=== PATIENT | female | born 1945 | race Native Hawaiian/Other Pacific Islander ===

== ENCOUNTER 2017-10-07 19:20 | Inpatient (IN) | payer MEDICARE, OTHER, MEDICAID ==
[~2017-10-07] VITALS: Ht 152.4 cm; Wt 42.6 kg
[~2017-10-07 19:20] MED LIST: ALBU8.5H8 IH; AMLO5TAB2 PO; DOXY100C2 PO; FLUT1DIS28 IH; LISI10TA PO; TIOT18CA3 IH
[2017-10-07] MEDS ORDERED: DIVA250T6 PO (19:33)
[2017-10-07] MEDS ORDERED: TRAZ-144 PO (19:33)
[2017-10-07 20:15] VITALS: BP 117/67
[2017-10-07 20:19] LABS: ETHANOL < 3 MG/DL (0-0)
[2017-10-07 20:24] LABS: ALANINE AMINOTRANSFERASE 18 U/L (14-59); ALKALINE PHOSPHATASE 94 U/L (50-136); ASPARTATE AMINOTRANSFERASE 19 U/L (15-37); BILIRUBIN,DIRECT 0.1 mg/dL (0.0-0.2); BILIRUBIN,TOTAL 0.2 mg/dL (0.2-1.0); CARBON DIOXIDE 29 mmol/L (21-32); CHLORIDE 106 mmol/L (98-107); CREATININE 0.8 mg/dL (0.6-1.3); GLUCOSE 67 mg/dL (74-106); POTASSIUM 3.8 mmol/L (3.5-5.1); TOTAL PROTEIN, SERUM 6.9 g/dL (6.4-8.2); UREA NITROGEN, BLOOD 14 mg/dL (7-18)
[2017-10-07 20:29] LABS: ACETAMINOPHEN < 2.0 ug/mL (10-30)
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
[2017-10-07 20:31] LABS: THYROID STIMULATING HORMONE 0.884 mIU/mL (0.358-3.740)
[2017-10-07 20:33] LABS: BASOPHILS # (AUTO) 0.1 K/uL (0.0-8.0); EOSINOPHILS # (AUTO) 0.1 K/uL (0.0-0.7); HEMATOCRIT 40.5 % (31.2-41.9); HEMOGLOBIN 13.5 g/dL (10.9-14.3); LYMPHOCYTES # (AUTO) 1.6 K/uL (20.0-40.0); LYMPHOCYTES % (AUTO) 31.9 % (20.5-51.5); MEAN CORPUSCULAR HGB CONC 33 g/dL (32.3-35.6); MONOCYTES # (AUTO) 0.5 K/uL (2.0-10.0); MONOCYTES % (AUTO) 10.3 % (0.0-11.0); NEUTROPHILS # (AUTO) 2.7 K/uL (1.8-8.9); NEUTROPHILS % (AUTO) 53.8 % (38.5-71.5); PLATELET COUNT (AUTO) 169 K/uL (179-408); RED BLOOD CELL COUNT(AUTO) 4.22 MIL/uL (3.63-4.92)
[2017-10-07 20:39] LABS: *AMPHETAMINE, URINE NEGATIVE (NEGATIVE); *BARBITURATE, URINE NEGATIVE (NEGATIVE); *CANNABINOID, URINE NEGATIVE (NEGATIVE); *COCCAINE, URINE NEGATIVE (NEGATIVE); *OPIATE, URINE NEGATIVE (NEGATIVE); *PHENCYCLIDINE SCREEN,URINE NEGATIVE (NEGATIVE)
--- NOTE | 2017-10-07 20:43 | NUR ---
Pt. admitted to MHU , under care of Dr. CASTLE Belongs List completed.
[2017-10-07] MEDS ORDERED: MAGNESIUM HYDROXIDE 30 ML LIQUID UDC PO PRN (21:30)
[2017-10-07] MEDS ORDERED: MAG HYDROX/AL HYDROX/SIMETH 30 ML LIQUID UDC PO PRN (21:30)
[2017-10-07] MEDS ORDERED: ZOLPIDEM 5 MG TABLET PO PRN (21:30)
[2017-10-07] MEDS: ACETAMINOPHEN 325 MG TABLET PO PRN (22:07)
--- NOTE | 2017-10-08 06:41 | NUR ---
Pt DID NOT WANT TO STAY AWAKE TO SIGN FOR INVENTORY. Pt BELONGINGS PAPER AND AND MEDICATIONS BAG THAT WILL GO TO PHARMACY TO BE ENDORSED TO DAY SHIFT NURSEJeff RN FOR Pt TO SIGN.
[2017-10-08 08:21] VITALS: BP 117/74
[2017-10-08] MEDS: VENLAFAXINE XR 37.5 MG CAP.SR.24H PO SCH (09:07)
--- NOTE | 2017-10-08 12:12 | NUR ---
Firearms Report: Mid Level Project Manager completed and submitted [employer] Firearms Report on 10/08/17.
[2017-10-08] MEDS: ACETAMINOPHEN 325 MG TABLET PO PRN (16:01)
--- NOTE | 2017-10-08 16:04 | NUR ---
pAGED X2 FOR MEDICATION RECONCILES ,STILL NO RESPONDED.
[2017-10-08 17:06] VITALS: BP 159/93
[2017-10-08 20:00] VITALS: BP 113/68
[2017-10-08] MEDS: TRAZODONE 50 MG TABLET PO SCH (20:35)
[2017-10-09 07:30] VITALS: BP 117/76
[2017-10-09] MEDS: LISINOPRIL 10 MG TABLET PO SCH (08:30)
[2017-10-09] MEDS: VENLAFAXINE XR 37.5 MG CAP.SR.24H PO SCH (08:30)
[2017-10-09] MEDS: AMLODIPINE 5 MG TABLET PO SCH (08:31)
[2017-10-09 15:59] VITALS: BP 100/71
[2017-10-09 20:00] VITALS: BP 108/68
[2017-10-09] MEDS: TRAZODONE 50 MG TABLET PO SCH (20:34)
[2017-10-09] MEDS: ACETAMINOPHEN 325 MG TABLET PO PRN (21:13)
--- NOTE | 2017-10-09 22:08 | NUR ---
PATIENT RECEIVED IN BED AWAKE READING A BOOK. PATIENT DENIES SI, WILL CONTINUE TO MONITOR PATIENT ENCOURAGED TO EXPRESS FEELINGS AND CONCERNS. PATIENT REMAINS ISOLATIVE/WITHDRAWN. PATIENT COMPLAINT WITH MEDICATION. NO AGGRESSIVE OR COMBATIVE BEHAVIOR WILL CONTINUE TO MONITOR AND REDIRECT NEEDED. BED IN LOWEST POSITION, BED LOCKED, AND BED ALARM ON WHILE IN BED.
[2017-10-10 07:30] VITALS: BP 116/68
[2017-10-10] MEDS: LISINOPRIL 10 MG TABLET PO SCH (09:51)
[2017-10-10] MEDS: VENLAFAXINE XR 37.5 MG CAP.SR.24H PO SCH (09:51)
[2017-10-10] MEDS: AMLODIPINE 5 MG TABLET PO SCH (09:51)
--- NOTE | 2017-10-10 12:20 | NUR ---
Initial Discharge Instructions: Patient currently resides at [facility] [[address] [place] [address];[phone]], however, this facility is currently being shut down. Per patient, she would like to live somewhere where she can "be more independent." MAEVE spoke with pt's APS worker, Carlee ([phone]) who states she would like to be informed of patient's discharge date and disposition. MAEVE will continue to collaborate with pt and MD regarding appropriate discharge plan. SW will form a safe and proper discharge.
[2017-10-10 15:46] VITALS: BP 112/64
[2017-10-10] MEDS: TRAZODONE 50 MG TABLET PO SCH (20:26)
[2017-10-10 20:29] VITALS: BP 131/81
--- NOTE | 2017-10-11 06:40 | NUR ---
PT'S ABLE TO SLEEP FOR 7.30 HOURS AT NIGHT,COMPLY W/MEDICATION.PAIN'S CONTROLLED.NO DISTRESS NOTED IN THE SHIFT.SAFETY RENDER.
[2017-10-11 07:30] VITALS: BP 122/78
--- NOTE | 2017-10-11 07:53 | NUR ---
PATIENT RECEIVED IN BED sleeping. PATIENT DENIES SI, WILL CONTINUE TO MONITOR PATIENT ENCOURAGED TO EXPRESS FEELINGS AND CONCERNS. PATIENT REMAINS ISOLATIVE/WITHDRAWN. PATIENT COMPLAINT WITH MEDICATION. NO AGGRESSIVE OR COMBATIVE BEHAVIOR WILL CONTINUE TO MONITOR AND REDIRECT NEEDED. BED IN LOWEST POSITION, BED LOCKED, AND BED ALARM ON WHILE IN BED.
[2017-10-11] MEDS: AMLODIPINE 5 MG TABLET PO SCH (08:09)
[2017-10-11] MEDS: LISINOPRIL 10 MG TABLET PO SCH (08:09)
[2017-10-11] MEDS: VENLAFAXINE XR 37.5 MG CAP.SR.24H PO SCH (08:09)
[2017-10-11 15:00] VITALS: BP 104/59
[2017-10-11] MEDS: TRAZODONE 50 MG TABLET PO SCH (20:17)
--- NOTE | 2017-10-12 06:26 | NUR ---
GPS: REMAIN CALM AND COOPERATIVE WITH MEDICATIONS AND CARE. SLEPT 9 HRS THROUGH THE NIGHT. CONTINUE PLAN OF CARE.
[2017-10-12 07:30] VITALS: BP 95/50
[2017-10-12] MEDS: LISINOPRIL 10 MG TABLET PO SCH (09:00)
[2017-10-12] MEDS: AMLODIPINE 5 MG TABLET PO SCH (09:00)
[2017-10-12] MEDS: VENLAFAXINE XR 37.5 MG CAP.SR.24H PO SCH (09:23)
[2017-10-12] MEDS: ACETAMINOPHEN 325 MG TABLET PO PRN (12:56)
--- NOTE | 2017-10-12 12:56 | NUR ---
PATIENT STATED THAT SHE HAS A HEADACHE MEDICATED WITH TYLENOL ORDERED AND WILL OBSERVE.
[2017-10-12 15:00] VITALS: BP_SYST 103; BP_SYST 95; BP_DIAS 50
--- NOTE | 2017-10-12 18:00 | NUR ---
RESTING WITH NO C/O AT THIS TIME.
[2017-10-12] MEDS: TRAZODONE 50 MG TABLET PO SCH (20:18)
[2017-10-12 20:25] VITALS: BP 122/74
--- NOTE | 2017-10-12 21:34 | NUR ---
GPS: PATIENT C/O ANXIETY. ATIVAN 0.5 MG PO GIVEN.
[2017-10-12] MEDS: LORAZEPAM 0.5 MG TABLET PO PRN (21:37)
--- NOTE | 2017-10-12 22:40 | NUR ---
GPS: PATIENT IS CALM NOW STATED I AM FEELING BETTER. PRN EFFECTIVE FOR ANXIETY.
--- NOTE | 2017-10-13 06:45 | NUR ---
GPS: REMAIN CALM NAD COOPERATIVE WITH MEDICATIONS AND CARE. ATIVAN 0.5 MG EFFECTIVE FOR ANXIETY. PLESANT UPON APPROACH.SLEPT 8:30 HRS THROUGH THE NIGHT.CONTINUE PLAN OF CARE.
[2017-10-13 08:00] VITALS: BP 113/61
[2017-10-13] MEDS: AMLODIPINE 5 MG TABLET PO SCH (08:39)
[2017-10-13] MEDS: VENLAFAXINE XR 37.5 MG CAP.SR.24H PO SCH (08:39)
[2017-10-13] MEDS: LISINOPRIL 10 MG TABLET PO SCH (08:40)
[2017-10-13 16:26] VITALS: BP 113/62
--- NOTE | 2017-10-13 17:00 | NUR ---
SHOWERED UP AND AMBULATORY IN THE HALLWAY WITH SLOW STEADY GAIT COMPLIANT WITH MEDICATIONS AND CARE AND WILL CONTINUE TO OBSERVE AND PROVIDE SAFE AND THERAPEUTIC ENVIRONMENT AT ALL TIMES.
[2017-10-13 20:00] VITALS: BP 116/63
[2017-10-13] MEDS: TRAZODONE 50 MG TABLET PO SCH (20:09)
[2017-10-13] MEDS: LORAZEPAM 0.5 MG TABLET PO PRN (20:09)
--- NOTE | 2017-10-13 20:10 | NUR ---
gps: patient c/o anxiety. ativan 0.5 mg po given per patient requested.
--- NOTE | 2017-10-13 21:00 | NUR ---
GPS: PATIENT REFUSED HS INH DOSE.
--- NOTE | 2017-10-14 06:28 | NUR ---
GPS: REMAIN CALM AND COOPERATIVE. ATIVAN GIVEN 20:10 PM AND EFFECTIVE. SLEPT 8:30 HRS THROUGH THE NIGHT.NO BEHAVIOR PROBLEM NOTED.
[2017-10-14 07:30] VITALS: BP 96/58
[2017-10-14 09:00] VITALS: BP 96/58
[2017-10-14] MEDS: LISINOPRIL 10 MG TABLET PO SCH (09:00)
[2017-10-14] MEDS: AMLODIPINE 5 MG TABLET PO SCH (09:00)
[2017-10-14] MEDS: VENLAFAXINE XR 37.5 MG CAP.SR.24H PO SCH (09:34)
--- NOTE | 2017-10-14 10:21 | NUR ---
DC Note: Patient will be discharged to [facility] [[place] [address]; [phone]] via ambulance. Patient is aware and agreeable with discharge plans. Patient will follow-up at the facility with Dr. Benitez (Acid Condenser) and Dr. Jorgensen (Psychiatrist). Patient was provided with referrals for outpatient mental health resources including [facility] , [facility] , and the National Suicide Prevention Lifeline .
--- NOTE | 2017-10-14 13:45 | NUR ---
REPORT CALLED TO JAY ENAMORADO AT [facility]
--- NOTE | 2017-10-14 14:00 | NUR ---
AMBULANCE HERE TO TRANSPORT PT. TO [facility]. DISCHARGED
== END 2017-10-14 14:15 | DRG 885 ==
LOC: ER 19:21 → GPS 20:49
PROVIDERS: ADMIT Psychiatry & Neurology Psychiatry; ATTEND Internal Medicine
DX: F33.2 Major depressive disorder, recurrent severe without psychotic features (principal); J44.9 Chronic obstructive pulmonary disease, unspecified; Z88.6 Allergy status to analgesic agent; Z88.0 Allergy status to penicillin; Z91.018 Allergy to other foods; F41.9 Anxiety disorder, unspecified; I10 Essential (primary) hypertension; Z63.9 Problem related to primary support group, unspecified; Z79.899 Other long term (current) drug therapy; Z91.5 Personal history of self-harm; F17.210 Nicotine dependence, cigarettes, uncomplicated
CPT/HCPCS: 36415; 80307; 84443; 85025; 93005; A4663; G0480; G0480-TC; J3535